=== PATIENT | female | born 1960 | race Caucasian/White ===

== ENCOUNTER 2017-11-01 14:11 | Day surgery (SDC) | payer OTHER ==
[~2017-11-01 14:11] MED LIST: AMIT10 PO; AMIT50 PO; ASPI81CH PO; ASPI81EC PO; Aciphex20 MG PO; Amitriptyline100 MG PO; CIPR500 PO; Cipro500 MG PO; DEXL60CA3 PO; DIPATRL; DOCU100 PO; ESCI10 PO; ESOM20 PO; Ferrous Fumara324 MG PO; IBUP600 PO; LIDO2L; LORA1 PO; Milk Of Ma400 MG/5 M PO; Norco 5-325 Ta1 EACH PO; OMEP20ER PO; OMEP40CA12 PO; ONDA8 PO; OXYACE5T PO; PRAM.125 PO; Prilosec Otc20 MG PO; RABE20 PO; RANI150 PO; Silvadene20 GM TOP; VIIBRYD40 MG PO; XARELTO15 MG PO; Zofran8 MG PO
[2017-11-01] MEDS ORDERED: Lomotil Tablet1 EACH PO (16:54)
== END 2017-11-01 16:50 | disposition home or self-care (01) ==
LOC: ATC 14:11
DX: Z45.1 Encounter for adjustment and management of infusion pump (principal); C18.3 Malignant neoplasm of hepatic flexure
CPT/HCPCS: 96523; J1642